=== PATIENT | female | born 1955 | race African-American/Black ===

== ENCOUNTER 2021-12-07 20:05 | Inpatient (IN) | payer MEDICARE, OTHER ==
[~2021-12-07] VITALS: Ht 170.2 cm; Wt 63.5 kg
--- NOTE | 2021-12-07 20:17 | NUR ---
pt bib emt from [facility]. gtube came out.
--- NOTE | 2021-12-07 20:20 | NUR ---
Dr Notrh at bedside, MSE in progress
[2021-12-07 21:09] LABS: HEMATOCRIT 38.2 % (31.2-41.9); MEAN CORPUSCULAR HEMOGLOBIN 28.1 uug (24.7-32.8); MEAN CORPUSCULAR VOLUME 88.3 fL (75.5-95.3); PLATELET COUNT (AUTO) 445 K/uL (179-408)
[2021-12-07 21:25] LABS: CREATININE 0.9 mg/dL (0.6-1.3); POTASSIUM 4.6 mmol/L (3.5-5.1)
[2021-12-07 21:49] LABS: *BILIRUBIN,URIN NEGATIVE (NEGATIVE); *CLARITY,URINE CLOUDY (CLEAR); *COLOR,URINE YELLOW (YELLOW); *KETONES,URINE NEGATIVE (NEGATIVE); LEUKOCYTE ESTERASE ,URINE 3+ (NEGATIVE); NITRITE, URINE NEGATIVE (NEGATIVE); UGLUCOSE NEGATIVE (NEGATIVE)
[2021-12-07 21:50] LABS: *BLOOD, URINE TRACE (NEGATIVE)
[2021-12-07] MEDS ORDERED: ASPIRIN 81 MG TAB.CHEW PO ONE (22:00)
[2021-12-07] MEDS ORDERED: NITROGLYCERIN OINT 1 GM PACKET TP ONE ×2 (22:00→22:18)
[2021-12-07 22:07] LABS: BACTERIA,URINE MANY /HPF (NONE SEEN); SQUAMOUS EPITHELIAL CELL,UR MODERATE /HPF (NONE SEEN); WBC,URINE TNTC /HPF (0-3)
[2021-12-07] MEDS ORDERED: ASPIRIN 81 MG TAB.CHEW ONE (22:18)
[2021-12-07] MEDS ORDERED: CEFTRIAXONE /D5W 50ML IVPB **ER PYXIS IV ONE (22:21)
[2021-12-07] MEDS ORDERED: CEFTRIAXONE 1 G in IV DEXTROSE 5% 50 ML IV ONE (22:30)
--- NOTE | 2021-12-07 22:38 | NUR ---
Called [facility] for panel call
--- NOTE | 2021-12-07 22:42 | NUR ---
Dr. Larsen [facility] panel called back for admission.
[2021-12-07] MEDS ORDERED: MAGNESIUM HYDROXIDE 30 ML LIQUID UDC PO PRN (22:45)
[2021-12-07] MEDS ORDERED: ONDANSETRON 4 MG/2 ML VIAL IV PRN (22:45)
[2021-12-07] MEDS ORDERED: IV D5 1/2 NS 1000 ML 1,000 ML IV SCH (22:45)
[2021-12-07] MEDS ORDERED: ATOR80TA GT (23:58)
[2021-12-07] MEDS ORDERED: MINE3.5O44 EACHEYE (23:58)
[2021-12-07] MEDS ORDERED: ACET-2154 GT (23:58)
[2021-12-07] MEDS ORDERED: LISI20TA30 GT (23:58)
[2021-12-07] MEDS ORDERED: OLAN2.5T3 GT (23:58)
[2021-12-07] MEDS ORDERED: ENOX40DI SQ (23:58)
[2021-12-07] MEDS ORDERED: POLY17PO4 GT (23:58)
[2021-12-07] MEDS ORDERED: LEVE500S9 GT (23:58)
[2021-12-07] MEDS ORDERED: MULT-213 GT (23:58)
[2021-12-07] MEDS ORDERED: [UNRECOGNIZED DRUG - OTHER] SQ (23:58)
[2021-12-07] MEDS ORDERED: ASPI81TA31 GT (23:58)
--- NOTE | 2021-12-08 00:23 | NUR ---
report given to May ANGEL
--- NOTE | 2021-12-08 01:35 | NUR ---
received from ER patient is confused alert only to name no respiratory distress noted breathing even and unlabored. connected to heart monitor st 120 to 125 .started ivf d2 1/2 ns at 125 ml/hr via the right forearm . mittens applied to bilateral hand patient tries to reach for her peg . oriented to placed and room . bed alarm on .
--- NOTE | 2021-12-08 01:35 | NUR ---
Pt. admitted to TELE room 315 , under care of Dr. Larsen Belongs List completed May ANGEL and Maryse BECKMAN aware of patient's arrival
[2021-12-08 01:45] VITALS: BP 135/87
--- NOTE | 2021-12-08 02:00 | NUR ---
photo taken on patient skin with redness to her perineal area , bilateral groin,right and left buttocks and peg site . photos placed in chart and wound consult ordered .
[2021-12-08 04:34] VITALS: BP 129/84
[2021-12-08 07:02] LABS: HEMATOCRIT 36.1 % (31.2-41.9); MEAN CORPUSCULAR HEMOGLOBIN 28.3 uug (24.7-32.8); MEAN CORPUSCULAR VOLUME 88.1 fL (75.5-95.3); PLATELET COUNT (AUTO) 453 K/uL (179-408)
[2021-12-08 08:10] LABS: MAGNESIUM 1.9 mg/dL (1.8-2.4); PHOSPHOROUS 4.3 mg/dL (2.5-4.9); POTASSIUM 4.9 mmol/L (3.5-5.1)
[2021-12-08] MEDS ORDERED: DIATR MEGLU/DIATRIZOATE SODIUM 30 ML BOTTLE ONE (09:52)
[2021-12-08] MEDS ORDERED: JEVITY 1.2 1000 ML LIQUID GT PRN (11:15)
[2021-12-08 11:49] VITALS: BP 134/84
[2021-12-08] MEDS ORDERED: NEPRO 1000 ML GT PRN (12:15)
[2021-12-08] MEDS: IV D5 1/2 NS 1000 ML 1,000 ML IV PRN (12:26)
[2021-12-08 15:03] VITALS: BP 138/83
[2021-12-08 20:17] VITALS: BP 140/92
[2021-12-08] MEDS ORDERED: CEFTRIAXONE 1 G in IV DEXTROSE 5% 50 ML IV SCH (21:00)
[2021-12-09 00:39] VITALS: BP 128/74
[2021-12-09] MEDS: ACETAMINOPHEN 325 MG TABLET PO PRN (00:52)
--- NOTE | 2021-12-09 01:20 | NUR ---
Assessed GT placement noted abdomen is very hard like rock mainly localized around mid section, no problem with supra pubic area. Feeding held. Farida Hodgson, [employer] notified with order CT of pelvis/abdomen. On tele sinus tachy HR sustained 137bpm, not in distress at this time.
--- NOTE | 2021-12-09 02:04 | NUR ---
Off to radiology dept via bed for CT of pelvis/abdomen w/o contrast.
--- NOTE | 2021-12-09 02:30 | NUR ---
Back from radiology dept.
[2021-12-09 04:00] VITALS: BP 129/87
[2021-12-09] MEDS: IV D5 1/2 NS 1000 ML 1,000 ML IV PRN ×2 (05:01→19:53)
--- NOTE | 2021-12-09 07:16 | NUR ---
CT abdomen and pelvis without contrast result forwarded to Agnes Hodgson NP.
--- NOTE | 2021-12-09 07:19 | NUR ---
Dr Trujillo discussed plans regarding result of CT abd/pelvis, will come early to ascertain patient condition.
--- NOTE | 2021-12-09 07:21 | NUR ---
Dr. Trujillo came in examined patient, inserted NGT aseptically, tolerated by patient. Connected to low intermittent suction, obtained brownish stomach contents. Gastrograffin upper GI xray ordered.
--- NOTE | 2021-12-09 07:24 | NUR ---
Dr Larsen notified regarding above. Endorsed to AM nurse in apparently fair condition. No acute distress noted.
[2021-12-09 07:30] LABS: HEMATOCRIT 40.8 % (31.2-41.9); MEAN CORPUSCULAR HEMOGLOBIN 28.6 uug (24.7-32.8); PLATELET COUNT (AUTO) 480 K/uL (179-408)
[2021-12-09 07:34] LABS: CREATININE 1.1 mg/dL (0.6-1.3); MAGNESIUM 2.1 mg/dL (1.8-2.4); PHOSPHOROUS 4.1 mg/dL (2.5-4.9); POTASSIUM 4.8 mmol/L (3.5-5.1)
--- NOTE | 2021-12-09 09:30 | NUR ---
PHONE CALL DR. ROWE AT [facility]. INSTRUCTIONS TO CONTACT RN TO VERIFY IF EITHER: XR GASTROGRAPHIN ENIMA ORDER VERSES GTUBE 1ABDO VIEW XR FOR PLACEMENT STUDY RN TO CALL RADIOLOGY WHEN NOTIFIED VERIFICATION OF EXAM
[2021-12-09] MEDS ORDERED: DIATR MEGLU/DIATRIZOATE SODIUM 30 ML BOTTLE ONE (09:59)
[2021-12-09 11:06] VITALS: BP 136/86
--- NOTE | 2021-12-09 11:11 | NUR ---
WOUND CARE CONSULT: PT PRESENTS WITH SCARRING TO BILATERAL BUTTOCKS AND RASH TO PERINEUM, GROIN FOLDS AND INNER THIGHS, PRESENT ON ADMISSION. RECOMMENDATIONS MADE FOR SKIN PROTECTION. DISCUSSED WITH NURSING STAFF. MD IN AGREEMENT WITH PLAN OF CARE.
[2021-12-09] MEDS ORDERED: REMEDY ESSENTIAL ZINC PASTE 113 GM TOP PRN (11:15)
[2021-12-09 15:04] VITALS: BP 129/83
--- NOTE | 2021-12-09 15:28 | NUR ---
Per Dr Trujillo, patient can restart her feeding tomorrow half strength and then advance next day. However, Patient can be given medication starting today.
[2021-12-09] MEDS: CLOTRIMAZOLE 1% CREAM 30 GM TUBE TOP SCH (17:04)
[2021-12-09] MEDS ORDERED: PIPERACILLIN SODIUM/TAZOBACTAM 3.375 G in IV DEXTROSE 5% 50 ML IV SCH (18:00)
[2021-12-09] MEDS: PIPERACILLIN SODIUM/TAZOBACTAM 3.375 G in IV DEXTROSE 5% 100 ML IV SCH (18:37)
[2021-12-09 20:20] VITALS: BP 127/80
[2021-12-09] MEDS: REMEDY ESSENTIAL ZINC PASTE 113 GM TOP SCH (20:41)
--- NOTE | 2021-12-09 23:00 | NUR ---
Patient not peeing, did bladder scan with result [address] Larsen, may insert beavers cath. FC inserted tolerated well, with yellow color urine output w/ sediments.
[2021-12-10 00:48] VITALS: BP 122/55
[2021-12-10] MEDS: ACETAMINOPHEN 325 MG TABLET PO PRN (00:53)
[2021-12-10] MEDS: PIPERACILLIN SODIUM/TAZOBACTAM 3.375 G in IV DEXTROSE 5% 100 ML IV SCH ×3 (03:04→18:09)
--- NOTE | 2021-12-10 03:10 | NUR ---
Patient noted restless and looked like in a lot of pain, mid abdomen still hard. Still tachycardic HR 145-150, not in distress. Farida Hodgson NP notified with order to give Morphine one time for pain.
[2021-12-10] MEDS ORDERED: MORPHINE SULFATE 2 MG/1 ML DISP.SYRIN IV ONE (03:15)
[2021-12-10 04:00] VITALS: BP 125/66
[2021-12-10 07:43] LABS: CREATININE 1.1 mg/dL (0.6-1.3); POTASSIUM 3.8 mmol/L (3.5-5.1)
[2021-12-10 08:01] LABS: HEMATOCRIT 30.8 % (31.2-41.9); MEAN CORPUSCULAR HEMOGLOBIN 28.5 uug (24.7-32.8); MEAN CORPUSCULAR VOLUME 86.8 fL (75.5-95.3); PLATELET COUNT (AUTO) 413 K/uL (179-408)
[2021-12-10] MEDS: CLOTRIMAZOLE 1% CREAM 30 GM TUBE TOP SCH ×2 (09:00→17:10)
[2021-12-10] MEDS: REMEDY ESSENTIAL ZINC PASTE 113 GM TOP SCH ×2 (09:00→20:17)
[2021-12-10] MEDS: IV D5 1/2 NS 1000 ML 1,000 ML IV PRN ×2 (10:10→21:23)
[2021-12-10 12:00] VITALS: BP 120/76
[2021-12-10 16:00] VITALS: BP 128/59
[2021-12-10] MEDS: MORPHINE SULFATE 2 MG/1 ML DISP.SYRIN IV PRN (17:10)
--- NOTE | 2021-12-10 20:00 | NUR ---
GT leaking around the site, Dr Trujillo informed. Per Dr Trujillo GT issues is for GI doctor. Dr. De La Vega informed and said he will let Dr. Larsen know in the morning.
[2021-12-10 20:20] VITALS: BP 121/54
[2021-12-11] VITALS: BP 126/63
[2021-12-11] MEDS: PIPERACILLIN SODIUM/TAZOBACTAM 3.375 G in IV DEXTROSE 5% 100 ML IV SCH ×3 (01:59→18:33)
[2021-12-11 04:00] VITALS: BP 133/69
[2021-12-11] MEDS: ACETAMINOPHEN 325 MG TABLET PO PRN (04:01)
[2021-12-11 07:09] LABS: HEMATOCRIT 28.3 % (31.2-41.9); MEAN CORPUSCULAR HEMOGLOBIN 28.5 uug (24.7-32.8); MEAN CORPUSCULAR VOLUME 86.2 fL (75.5-95.3); PLATELET COUNT (AUTO) 370 K/uL (179-408)
[2021-12-11 07:15] LABS: POTASSIUM 3.2 mmol/L (3.5-5.1)
[2021-12-11] MEDS: IV D5 1/2 NS 1000 ML 1,000 ML IV PRN (07:32)
[2021-12-11] MEDS: POTASSIUM CHLORIDE 50 ML IV SCH ×4 (08:14→11:02)
[2021-12-11] MEDS: REMEDY ESSENTIAL ZINC PASTE 113 GM TOP SCH ×2 (09:36→21:00)
[2021-12-11] MEDS: CLOTRIMAZOLE 1% CREAM 30 GM TUBE TOP SCH ×2 (09:36→17:49)
--- NOTE | 2021-12-11 11:00 | NUR ---
pt was seen by dr daniel. can start the feeding per md.
--- NOTE | 2021-12-11 15:00 | NUR ---
gt site still leaking and with resistance when flushed. held feeding. md notified. md order pt will be npo. md ordered laparoscopic evaluation for cristina.
[2021-12-11 16:08] VITALS: BP 125/54
[2021-12-11 20:00] VITALS: BP 124/59
[2021-12-11] MEDS: MORPHINE SULFATE 2 MG/1 ML DISP.SYRIN IV PRN (20:04)
[2021-12-12] MEDS: PIPERACILLIN SODIUM/TAZOBACTAM 3.375 G in IV DEXTROSE 5% 100 ML IV SCH ×3 (01:03→17:09)
[2021-12-12] MEDS: MORPHINE SULFATE 2 MG/1 ML DISP.SYRIN IV PRN (03:36)
[2021-12-12 04:34] VITALS: BP 127/76
--- NOTE | 2021-12-12 06:34 | NUR ---
pt slept on and off. feeding still held. v-pacing; HR on 130s; pt still npo. follow up with dr. fabian regarding laparoscopic eval.
[2021-12-12 06:48] LABS: HEMATOCRIT 25.9 % (31.2-41.9); MEAN CORPUSCULAR HEMOGLOBIN 27.8 uug (24.7-32.8); MEAN CORPUSCULAR VOLUME 85.5 fL (75.5-95.3); PLATELET COUNT (AUTO) 400 K/uL (179-408)
[2021-12-12 07:04] LABS: CREATININE 0.8 mg/dL (0.6-1.3); POTASSIUM 3.2 mmol/L (3.5-5.1)
--- NOTE | 2021-12-12 09:00 | NUR ---
DR DUMONT HERE TO SEE PATIENT AND I NOTIFIED HIM THAT HE NEEDED TO SIGN THE CONSCENT FOR THE PROCEDURES RECOMMENDED BY DR FERNANDEZ AND HE STATED OKAY AND SIGNED THE CONSCENT DR FERNANDEZ AWARE THAT HE WILL BE THE SECOND CO SIGNER.
[2021-12-12] MEDS: POTASSIUM CHLORIDE 50 ML IV SCH ×4 (09:05→17:07)
[2021-12-12] MEDS: REMEDY ESSENTIAL ZINC PASTE 113 GM TOP SCH (09:06)
[2021-12-12] MEDS: CLOTRIMAZOLE 1% CREAM 30 GM TUBE TOP SCH ×2 (09:06→17:08)
[2021-12-12] MEDS ORDERED: METOPROLOL TARTRATE 5 MG/5 ML VIAL IVP ONE (09:15)
[2021-12-12] MEDS: IV D5 1/2 NS 1000 ML 1,000 ML IV PRN (09:16)
--- NOTE | 2021-12-12 10:30 | NUR ---
PATIENT PICKED UP BY BED TO OR FOR THE SCHEDULED PROCEDURE WITH HER SECOND BAG OF POTASSIUM INFUSING AT THIS TIME.
[2021-12-12] MEDS ORDERED: FENTANYL CITRATE 100 MCG/2 ML AMPUL ONE (10:59)
[2021-12-12] MEDS ORDERED: ROCURONIUM BROMIDE 50 MG/5 ML VIAL ONE (11:00)
[2021-12-12] MEDS ORDERED: GLYCOPYRROLATE 0.2 MG/ML VIAL ONE (11:00)
[2021-12-12] MEDS ORDERED: SUCCINYLCHOLINE CHLORIDE 200 MG/10 ML VIAL ONE (11:03)
[2021-12-12] MEDS ORDERED: HYDROMORPHONE 2 MG/1 ML DISP.SYRIN ONE (11:30)
--- NOTE | 2021-12-12 14:30 | NUR ---
PATIENT RETURNED FROM THE PACU SOMEWHAT ASLEEP BUT OPENS EYES WHEN CALLED SHE IS NON VERBAL.ON O2 AT 3L/M BY NASAL CANULA WITH NO SOB AT THIS TIME.ABDOMEN WITH BULKY DRESSING INTACT WITH NO DRAINAGE NOTED WILL CONTINUE TO OBSERVE.
[2021-12-12 15:00] VITALS: BP 124/71
[2021-12-12] MEDS ORDERED: NEOSTIGMINE METHYLSULFATE 10 MG/10 ML VIAL IM ONE (16:19)
[2021-12-12] MEDS ORDERED: GLYCOPYRROLATE 0.2 MG/ML VIAL IJ ONE (16:19)
[2021-12-12] MEDS ORDERED: DEXAMETHASONE SOD PHOSPHATE 4 MG INJ IV ONE (16:19)
[2021-12-12] MEDS ORDERED: ETOMIDATE 20 MG/10 ML VIAL IV ONE (16:19)
[2021-12-12] MEDS ORDERED: SEVOFLURANE 250 ML BOTTLE IH ONE (16:19)
[2021-12-12] MEDS ORDERED: ONDANSETRON 4 MG/2 ML VIAL IV ONE (16:19)
[2021-12-12] MEDS ORDERED: LIDOCAINE-MPF 2% 5 ML VIAL IJ ONE (16:19)
[2021-12-12 16:27] VITALS: BP 124/72
--- NOTE | 2021-12-12 18:00 | NUR ---
REMAIN ON ATB ORDERED WITH NO ADVERSE OR ALLERGIC REACTIONS AT THIS TIME ABD DRESSING REMAIN INTACT WITH NO DRAINAGE O2 IN PROGRESS WITH NO SHORTNESS OF BREATH AT THIS TIME MADE COMFORTABLE WILL CONTINUE TO OBSERVE.
[2021-12-12 20:00] VITALS: BP 112/66
[2021-12-13] VITALS: BP 121/79
[2021-12-13] MEDS: PIPERACILLIN SODIUM/TAZOBACTAM 3.375 G in IV DEXTROSE 5% 100 ML IV SCH ×3 (01:46→18:47)
[2021-12-13] MEDS: REMEDY ESSENTIAL ZINC PASTE 113 GM TOP SCH ×3 (01:47→21:06)
[2021-12-13] MEDS: MORPHINE SULFATE 2 MG/1 ML DISP.SYRIN IV PRN (03:39)
[2021-12-13 04:00] VITALS: BP 122/70
[2021-12-13] MEDS: IV D5 1/2 NS 1000 ML 1,000 ML IV PRN ×2 (05:45→13:03)
[2021-12-13 06:30] LABS: HEMATOCRIT 25.2 % (31.2-41.9); MEAN CORPUSCULAR HEMOGLOBIN 27.9 uug (24.7-32.8); MEAN CORPUSCULAR VOLUME 86.2 fL (75.5-95.3); PLATELET COUNT (AUTO) 418 K/uL (179-408)
[2021-12-13 06:36] LABS: CREATININE 0.8 mg/dL (0.6-1.3)
[2021-12-13] MEDS: CLOTRIMAZOLE 1% CREAM 30 GM TUBE TOP SCH ×2 (09:04→17:00)
[2021-12-13 11:07] VITALS: BP 145/89
--- NOTE | 2021-12-13 11:28 | NUR ---
WOUND CARE CONSULT: PT PRESENTS WITH ABDOMINAL SURGICAL WOUND. DISCUSSED WOUND TREATMENT PLAN WITH DR FERNANDEZ. WOUND PACKED GENTLY WITH IODOFORM PACKING, COVERED WITH XEROFORM, GAUZE, ABD PADS AND SECURED WITH PAPER TAPE. PT TOLERATED WELL. Addendum: 12/14/21 at 1145 by YAS SUAZO RN CALLED DR FERNANDEZ BACK AFTER DRESSING CHANGE WAS DONE, REQUESTED BUT NO ANSWER. MSG LEFT.
[2021-12-13 16:09] VITALS: BP 133/82
[2021-12-13] MEDS ORDERED: TPN/PPN PER PHARMACY IV PRN (16:15)
[2021-12-13] MEDS ORDERED: DEXTROSE 50% 50 ML DISP.SYRIN IV PRN (17:15)
[2021-12-13] MEDS: BLOOD SUGAR DIAGNOSTIC 1 EACH STRIP VI SCH (18:49)
[2021-12-13 20:00] VITALS: BP 147/86
[2021-12-13] MEDS ORDERED: TPN BAG #1 IV SCH ×2 (20:00)
[2021-12-14] VITALS: BP 151/94
[2021-12-14] MEDS: BLOOD SUGAR DIAGNOSTIC 1 EACH STRIP VI SCH ×5 (00:32→23:36)
[2021-12-14] MEDS: IV D5 1/2 NS 1000 ML 1,000 ML IV PRN (02:00)
[2021-12-14] MEDS: PIPERACILLIN SODIUM/TAZOBACTAM 3.375 G in IV DEXTROSE 5% 100 ML IV SCH ×3 (02:06→17:13)
[2021-12-14 04:00] VITALS: BP 158/92
[2021-12-14 08:05] VITALS: BP 158/55
[2021-12-14 08:17] LABS: HEMATOCRIT 26.4 % (31.2-41.9); MEAN CORPUSCULAR HEMOGLOBIN 27.9 uug (24.7-32.8); MEAN CORPUSCULAR VOLUME 85.6 fL (75.5-95.3); PLATELET COUNT (AUTO) 420 K/uL (179-408)
[2021-12-14] MEDS: REMEDY ESSENTIAL ZINC PASTE 113 GM TOP SCH ×2 (08:20→20:33)
[2021-12-14] MEDS: CLOTRIMAZOLE 1% CREAM 30 GM TUBE TOP SCH ×2 (08:20→17:06)
[2021-12-14 09:05] LABS: CREATININE 0.7 mg/dL (0.6-1.3); MAGNESIUM 1.5 mg/dL (1.8-2.4); PHOSPHOROUS 2.1 mg/dL (2.5-4.9); POTASSIUM 3.2 mmol/L (3.5-5.1)
--- NOTE | 2021-12-14 12:30 | NUR ---
FAMILY ON THE PHONE,WAS UPDATED WITH PT.CONDITION AND PLAN OF CARE.
[2021-12-14 13:10] LABS: BAND % (MANUAL) 1 % (0-10); LYMPHOCYTES % (MANUAL) 26 % (20-40); MONOCYTES % (MANUAL) 14 % (2-10); MYELOCYTES % 1 % (0-0); NEUTROPHILS % (MANUAL) 58 % (42-75)
[2021-12-14 16:50] VITALS: BP 131/48
[2021-12-14] MEDS ORDERED: TPN BAG #2 IV SCH ×6 (18:00)
[2021-12-14] MEDS ORDERED: IV D5 1/2 NS 1000 ML 1,000 ML IV PRN (18:00)
[2021-12-14] MEDS ORDERED: TPN BAG#2 IV SCH ×4 (18:00)
[2021-12-14] MEDS ORDERED: IV FAT EMULSIONS 20% 250 ML IV SCH (18:00)
[2021-12-14 20:00] VITALS: BP 153/88
[2021-12-15 00:41] VITALS: BP 154/83
[2021-12-15] MEDS: PIPERACILLIN SODIUM/TAZOBACTAM 3.375 G in IV DEXTROSE 5% 100 ML IV SCH ×2 (01:20→10:40)
[2021-12-15 05:06] VITALS: BP 134/73
--- NOTE | 2021-12-15 06:55 | NUR ---
repositioned for comfort, needs attended to, all iv fluids ,tpn ans lipids infusing ell via picc line.am care done. kept warm and comfortable.
[2021-12-15] MEDS: BLOOD SUGAR DIAGNOSTIC 1 EACH STRIP VI SCH ×4 (07:03→23:54)
[2021-12-15 08:18] LABS: HEMATOCRIT 28.3 % (31.2-41.9); MEAN CORPUSCULAR HEMOGLOBIN 28.1 uug (24.7-32.8); MEAN CORPUSCULAR VOLUME 85.2 fL (75.5-95.3); PLATELET COUNT (AUTO) 385 K/uL (179-408)
[2021-12-15] MEDS ORDERED: [UNRECOGNIZED DRUG - OTHER] IV ONE (08:31)
[2021-12-15] MEDS ORDERED: DEXTROSE IV ONE (08:31)
[2021-12-15 08:46] LABS: CREATININE 0.6 mg/dL (0.6-1.3); MAGNESIUM 1.6 mg/dL (1.8-2.4); POTASSIUM 2.9 mmol/L (3.5-5.1)
[2021-12-15] MEDS: CLOTRIMAZOLE 1% CREAM 30 GM TUBE TOP SCH ×2 (09:00→17:13)
[2021-12-15] MEDS: REMEDY ESSENTIAL ZINC PASTE 113 GM TOP SCH ×2 (09:00→21:00)
[2021-12-15 11:51] VITALS: BP 134/75
[2021-12-15] MEDS ORDERED: TPN BAG#3 IV SCH ×5 (12:00)
[2021-12-15] MEDS: INSULIN REGULAR, HUMAN 300 UNIT/3 ML VIAL SQ PRN (12:29)
[2021-12-15] MEDS ORDERED: IV D5 1/2 NS 1000 ML 1,000 ML IV PRN (14:00)
[2021-12-15 15:39] VITALS: BP 150/92
--- NOTE | 2021-12-15 15:53 | NUR ---
Patient calm, no distress noted, changed and packed her dressing on the abdomen. Tolerated well, answers some questions when asked is she has pain. all iv fluids, tpn and lipids infusing well via picc line. kept warm and comfortable.
[2021-12-15] MEDS: levoFLOXacin 750MG/D5W 750 MG in PREMIXED 1 EACH IV SCH (15:57)
[2021-12-15 20:07] VITALS: BP 156/92
[2021-12-16] VITALS (7 sets, daily range): BP systolic 135–171; BP diastolic 70–90
[2021-12-16] MEDS: MORPHINE SULFATE 2 MG/1 ML DISP.SYRIN IV PRN (00:17)
[2021-12-16] MEDS ORDERED: hydrALAZINE HCL 20 MG/1 ML VIAL IV PRN (02:30)
--- NOTE | 2021-12-16 03:06 | NUR ---
BP was 166/85. Rechecked 171/87. Received order from Dr. Edgar. Administered Apresoline as ordered. Will reassess. Addendum: 12/16/21 at 0343 by ASIF RANDALL RN 034: BP 145/72
[2021-12-16] MEDS ORDERED: TPN BAG #4 IV SCH (06:00)
[2021-12-16] MEDS: BLOOD SUGAR DIAGNOSTIC 1 EACH STRIP VI SCH ×2 (06:02→12:37)
[2021-12-16] MEDS: INSULIN REGULAR, HUMAN 300 UNIT/3 ML VIAL SQ PRN ×2 (06:23→12:39)
[2021-12-16 07:11] LABS: CREATININE 0.7 mg/dL (0.6-1.3); MAGNESIUM 1.9 mg/dL (1.8-2.4); PHOSPHOROUS 2.2 mg/dL (2.5-4.9); POTASSIUM 3.4 mmol/L (3.5-5.1)
[2021-12-16] MEDS ORDERED: POTASSIUM CHLORIDE 20 MEQ POWDER PACKET GT ONE (07:45)
[2021-12-16] MEDS ORDERED: CARVEDILOL 6.25 MG TABLET PO SCH (08:00)
[2021-12-16] MEDS ORDERED: [UNRECOGNIZED DRUG - OTHER] IV ONE (08:28)
[2021-12-16] MEDS ORDERED: DEXTROSE IV ONE (08:28)
[2021-12-16] MEDS ORDERED: IV FAT EMULSIONS 20% 250 ML IV SCH (09:00)
[2021-12-16] MEDS: REMEDY ESSENTIAL ZINC PASTE 113 GM TOP SCH (09:21)
[2021-12-16] MEDS: CLOTRIMAZOLE 1% CREAM 30 GM TUBE TOP SCH ×2 (09:21→17:00)
[2021-12-16] MEDS ORDERED: LEVO750P5 IV (10:41)
[2021-12-16] MEDS ORDERED: METO5VIA IV (10:41)
[2021-12-16] MEDS ORDERED: CLOT30CR24 TOP (10:41)
[2021-12-16] MEDS ORDERED: LEVE1500 IV (10:43)
--- NOTE | 2021-12-16 11:47 | NUR ---
WOUND CARE FOLLOW UP: PT SEEN FOR SURGICAL WOUND REASSESSMENT. WOUND MEASURES 10CM X 25CM X 2CM WITH UNDERMINING OF 7CM AT 6:00 AND 3CM AT 12:00. WOUND IS RED AND YELLOW IN COLOR WITH SEROSANGUINOUS DRAINAGE, NO ODOR. RECOMMEND SURGICAL FOLLOW UP. DISCUSSED SKIN PROTECTION WITH NURSING STAFF. MD IN AGREEMENT WITH PLAN OF CARE.
[2021-12-16] MEDS ORDERED: TPN BAG#5 IV SCH ×7 (12:00)
[2021-12-16] MEDS: levoFLOXacin 750MG/D5W 750 MG in PREMIXED 1 EACH IV SCH (15:48)
--- NOTE | 2021-12-16 17:00 | NUR ---
UNABLE TO INTERRUPT ABD. DRESSING FOR PHOTOGRAPH. NURSE AND WOUND CARE CHANGED DRESSING. PREPARED FOR DISCHARGE.
--- NOTE | 2021-12-16 17:30 | NUR ---
DISCHARGED VIA [facility] TO AMBULANCE. NO DISTRESS NOTED. REPORT TO ERICH.
[2021-12-19] MEDS ORDERED: IV FAT EMULSIONS 20% 250 ML IV SCH (09:00)
== END 2021-12-16 17:30 | DRG 981 ==
LOC: ER 20:09 → TELE3 23:30
PROVIDERS: ADMIT Internal Medicine; ATTEND Nurse Practitioner Acute Care
PROC: 0KBL0ZZ Excision of Left Abdomen Muscle, Open Approach (ICD-10-PCS; principal; 2021-12-12)
PROC: 0KBK0ZZ Excision of Right Abdomen Muscle, Open Approach (ICD-10-PCS; 2021-12-12)
PROC: 02HV33Z Insertion of Infusion Device into Superior Vena Cava, Percutaneous Approach (ICD-10-PCS; 2021-12-13)
PROC: B548ZZA Ultrasonography of Superior Vena Cava, Guidance (ICD-10-PCS; 2021-12-13)
DX: K94.22 Gastrostomy infection (principal); G93.41 Metabolic encephalopathy; I21.A1 Myocardial infarction type 2; N17.0 Acute kidney failure with tubular necrosis; L02.211 Cutaneous abscess of abdominal wall; N39.0 Urinary tract infection, site not specified; I69.354 Hemiplegia and hemiparesis following cerebral infarction affecting left non-dominant side; I96 Gangrene, not elsewhere classified; M60.08 Infective myositis, other site; R00.0 Tachycardia, unspecified; E78.5 Hyperlipidemia, unspecified; E83.52 Hypercalcemia; E87.6 Hypokalemia; F25.9 Schizoaffective disorder, unspecified; G40.909 Epilepsy, unspecified, not intractable, without status epilepticus; I25.10 Atherosclerotic heart disease of native coronary artery without angina pectoris; I25.2 Old myocardial infarction; R13.10 Dysphagia, unspecified; K43.9 Ventral hernia without obstruction or gangrene; I10 Essential (primary) hypertension; K66.8 Other specified disorders of peritoneum; I49.3 Ventricular premature depolarization; Y83.8 Other surgical procedures as the cause of abnormal reaction of the patient, or of later complication, without mention of misadventure at the time of the procedure; Y73.8 Miscellaneous gastroenterology and urology devices associated with adverse incidents, not elsewhere classified; Y92.129 Unspecified place in nursing home as the place of occurrence of the external cause
CPT/HCPCS: 36415; 70030-TC; 71045; 74018; 83735; 84100; 84478; 84484; 85025; 85730; 87070; 87077; 87086; 93005; 93307; A4663; A6209; G0378; J0330; J0360; J0696; J1100; J1170; J1815; J1956; J2270; J2405; J2543; J3010; J3475; J3480; J3490; J7131; L8699; Q9963